=== PATIENT | female | born 1990 | race Caucasian/White ===

== ENCOUNTER 2017-12-10 09:12 | Day surgery (SDC) | payer OTHER ==
[~2017-12-10 09:12] MED LIST: Buffered Lidocaine 0.9% SYRIN* 5 ML/SYR SYRINGE INTRADERM ONE; Dexamethasone TAB* 4 MG PO ONE; DiMENhydriNATE IV* 50 MG/ML VIAL IV PUSH PRN; Famotidine IV* 10 MG/ML 2 ML (20 mg) IV ONE; Morphine VIAL* 4 MG/ML VIAL (1 ml vial) IV PRN; Naloxone* 0.4 MG/ML 1 ML VIAL IV PRN; Ondansetron TAB* 4 MG PO ONE; PROCHLORPERAZINE INJ 5 MG/ML 2 ML VIAL IV PRN; Scopolamine 1.5 mg* PATCH TRANSDERM PRN; oxyCODONE/Acetamin 5/325 MG* TAB PO PRN
[2017-12-10] MEDS ORDERED: KETAMINE HCL* 50 MG/ML 10 ML VIAL ONE (09:20)
[2017-12-10] MEDS ORDERED: fentaNYL* 50 MCG/ML 2 ML VIAL (100 MCG VIAL) ONE ×2 (09:20→14:15)
[2017-12-10] MEDS ORDERED: Midazolam* 1 MG/ML 5 ML VIAL (5 MG) ONE (09:20)
[2017-12-10] MEDS ORDERED: Famotidine IV* 10 MG/ML 2 ML (20 mg) ONE (09:22)
[2017-12-10] MEDS ORDERED: Dexamethasone TAB* 4 MG ONE (09:22)
[2017-12-10] MEDS ORDERED: Ondansetron ODT TAB* 4 MG ONE (09:22)
[2017-12-10] MEDS ORDERED: ceFAZolin 2 GM PREMIX in ORs 2 GM/50 ML BAG IVPB ONE (09:23)
[2017-12-10] MEDS ORDERED: Buffered Lidocaine 0.9% SYRIN* 5 ML/SYR SYRINGE ONE (09:23)
[2017-12-10] MEDS ORDERED: Bupivacaine 0.5% SDV PF* 30ML VIAL ONE (11:36)
[2017-12-10] MEDS ORDERED: PROCHLORPERAZINE INJ 5 MG/ML 2 ML VIAL ONE ×2 (12:09→14:34)
[2017-12-10] MEDS ORDERED: Lidocaine 2% PF * 5 ML VIAL ONE (12:09)
[2017-12-10] MEDS ORDERED: Ketorolac INJ* 30 MG/ML 1 ML VIAL ONE (12:09)
[2017-12-10] MEDS ORDERED: Propofol* 10 MG/ML 20 ML BTL IV PUSH ONE (12:09)
[2017-12-10] MEDS ORDERED: Morphine VIAL* 10 MG/ML 1 ML VIAL ONE (12:10)
[2017-12-10] MEDS ORDERED: Labetalol IV* 5 MG/ML 20 ML VIAL ONE (13:18)
[2017-12-10] MEDS: fentaNYL* 50 MCG/ML 2 ML VIAL (100 MCG VIAL) IV PRN ×3 (14:16→14:36)
--- NOTE | 2017-12-10 14:24 | OP ---
Operative Report - Blank - Operative Report Date of Operation: 12/10/17 Note: PATIENT: Ede Melvin DATE OF : 1990 DATE OF SURGERY: 12/10/2017 SURGEON: Alban Alvarado MD WELLNESS EDUCATOR: MARIBETH Dorsey, whos assistance was necessary for positioning, retraction, help with instrumentation, and closure. ANESTHESIOLOGIST: Dr. Bronson PREOPERATIVE DIAGNOSIS: Right peroneal tenosynovitis, peroneus brevis and longus tears and peroneal instability. Right calcaneal exostosis. Chronic right ankle instability. POSTOPERATIVE DIAGNOSIS: Right peroneal tenosynovitis, peroneus brevis and longus tears and peroneal instability. Right calcaneal exostosis. Chronic right ankle instability. OPERATION: 1. Repair of right peroneus brevis and longus tendon tears. 2. Right synovectomy of peroneal tendon sheath 3. Right peroneal tendon stabilization procedure with fibular groove deepening osteotomy. 4. Right calcaneal saucerization with excision of an enlarged peroneal tubercle. 5. Right ankle lateral ligament reconstruction with allograft. ANESTHESIA: GETA IMPLANTS: Arthrex plate and screws, Arthrex biotenodesis screws TOURNIQUET TIME: Less than 2 hours with a well-padded calf tourniquet at 250 mmHg. SPECIMENS: none ESTIMATED BLOOD LOSS: minimal COMPLICATIONS: none STATUS: Stable from the operating room to the recovery room and then home. INDICATIONS FOR PROCEDURE: Ede has had multiple prior right ankle surgeries with the above problems. Both operative and non operative treatment alternatives were reviewed. Further, the nature and risks of surgery were reviewed in careful detail, in the office as well as the pre-operative holding area. Our discussions regarding the risks of surgery included, but were not limited to, infection, wound problems, nerve injury, neuroma, RSD, persistent symptoms, fracture, blood clot, failure of the surgery, recurrent instability and even the remote chance of catastrophic complication, including loss of limb. DESCRIPTION OF PROCEDURE: The patient was seen in the preoperative holding unit and informed written consent was obtained. The appropriate extremity was marked. The patient was then brought to the operating room and carefully positioned on the operating room table. Anesthesia was induced. All bony prominences were padded with great care. A chlorhexidine based pre-scrub was performed followed by a chloraprep prep and drape in standard sterile fashion. A surgical safety pause was then conducted in which we confirmed the appropriate patient, extremity, planned procedure, availability of equipment, indication and administration of prophylactic antibiotics, and DVT prophylaxis in the form of a compression boot on the non-surgical extremity. I began with placement of a sterile calf tourniquet 3 finger-breadths distal to the fibular neck. An Esmarch exsanguination of the limb was then performed and the tourniquet inflated. I utilized the prior longitudinal incision overlying the distal fibula laterally. I carried the dissection down through the soft tissue to the level of the periosteum and superior peroneal retinaculum (SPR), which had a great deal of scar tissue. I carefully incised the SPR off of the posterior fibula to expose the peroneal tendons. Dissection of the tendons was carried distally. There was a large amount of inflamed tenosynovium within the tendon sheath. An extensive synovectomy was performed. Additionally, there was a low-lying peroneus brevis muscle belly which was debrided and excised. The tendons were explored at this time for any tears. There were longitudinal split tears of the peroneus brevis and longus at the level of the retro-fibular groove. I removed a small slip of loose frayed tendon from each tendon, leaving approximately 95% of the tendons intact. I then utilized a 3-0 Ethibond suture to repair the tendon tears. I then exposed the peroneal tendons distally and found an enlarged peroneal tubercle. I took down the gliding layer and then utilized a rongeur to remove this large tubercle, thus performing a saucerization of the calcaneus. At this point, I carefully inspected the peroneal groove at the posterior aspect of the fibula. This was an abnormally shallow groove and I therefore elected to perform a groove deepening osteotomy procedure. I utilized a small sagittal saw to create a longitudinal osteotomy in the fibula at the margin of the insertion of the SPR. I then utilized a bone tamp and a mallet to impact this area, deepening the groove. I took care to ensure that there were no sharp bony prominences in this area. At this point I carefully planned out the repair of the superior peroneal retinaculum. I then reduced the tendons and they sat nicely in the deepened retro-fibular groove. The wound was copiously irrigated. I repaired the SPR utilizing #1 Vicryl suture in a transosseous horizontal mattress suture pattern. I utilized multiple sutures for this repair, appropriately tensioning the SPR. I was able to pass a [place] under the repaired SPR without difficulty after the repair. I then dissected anteriorly to expose the anterolateral ankle ligaments. The ATFL and CFL were dissected off the distal fibula. The insertion of the ATFL onto the talus was visualized. A Beath pin guide pin was then driven into the body of the talus. The trajectory and position was confirmed on fluoroscopy. This was overdrilled and one end of the allograft tendon was placed into the drill hole. This was fixed in position with a Bio-Tenodesis screw. This had excellent purchase and I was able to lift the leg off the bed by pulling up on the allograft. I then used a toya to make a trough for the allograft on the lateral aspect of the fibula. I laid the allograft in the trough, and then placed a mini fragment plate laterally over the fibula. I placed screws in the plate to bring the plate down to bone, while holding tension on the allograft. This recreated the ATFL nicely. I then visualized the insertion of the CFL into the calcaneus. At this spot, a Beath pin was then driven into the calcaneus in an inferior and posterior direction. This was driven out of the medial calcaneus and then overdrilled to make a drill tunnel. The sutures on the end of the allograft were attached to the Beath pin and pulled through the calcaneus. With the foot in a neutral position, a Bio-Tenodesis screw was placed into the calcaneal drill tunnel. This again had excellent purchase. There was church of stability on anterior drawer and inversion testing. I then took the crow ATFL tissue and sutured it to a periosteal flap on the distal fibula to reinforce the allograft reconstruction. I then also sutured the inferior extensor retinaculum into the distal fibular periosteum (Phillips modification). After these repairs, the ankle and foot rested in an excellent position. We then irrigated the wound copiously again. The wound was closed in a layered fashion utilizing 3-0 Monocryl and 3-0 nylon. A sterile dressing was then applied and the ankle was splinted in a neutral position. All needle and sponge counts were correct at the end of the case. The patient was awakened from anesthesia and transferred to the recovery room in stable condition. There were no complications. ATTESTATION: I attest I was present and scrubbed and performed the critical portions of the procedure myself. POST-OPERATIVE PLAN: The patient will remain [id number] for an anticipated duration of 6 weeks. Follow up will be in 2 weeks for likely suture removal and transition into a short leg cast.
[2017-12-10] MEDS ORDERED: Morphine VIAL* 4 MG/ML VIAL (1 ml vial) IV ONE (14:38)
[2017-12-10 15:54] VITALS: BP 119/72
[2017-12-10] MEDS ORDERED: oxyCODONE/Acetamin 5/325 MG* TAB ONE (16:09)
--- NOTE | 2017-12-11 07:13 | RAD ---
INDICATION: Right ankle peroneal tendon exploration with repair. COMPARISON: Comparison is made with a prior x-ray study of the right ankle from September 14, 2017. TECHNIQUE: 20 seconds of intermittent fluoroscopic guidance were provided and 4 spot films of the right ankle were obtained in the operating room. FINDINGS: The films and is replacement of a metallic side plate present along the lateral aspect of the distal fibula transfixed with 5 surgical screws. IMPRESSION: INTRAOPERATIVE CONTROL FILMS. CPT II Codes: G9500
[2017-12-13] MEDS ORDERED: Scopolamine PATCH Remove* 1 NOTE MISC PATCH OFF ONE (05:45)
== END 2017-12-10 16:43 | disposition home or self-care (01) ==
LOC: OR 09:12
PROVIDERS: ATTEND Orthopaedic Surgery
DX: M25.371 Other instability, right ankle (principal); M76.71 Peroneal tendinitis, right leg; Q66.7 Congenital pes cavus; M77.31 Calcaneal spur, right foot
CPT/HCPCS: 76001; A9270-GY; C1713; C1776; J0690; J0780; J1885; J2250; J2270; J2704; J3010; J8540; L8699

== ENCOUNTER 2018-01-24 20:00 | Emergency (ER) | payer OTHER ==
--- OUTSIDE RECORDS SUMMARY | 2018-01-24 20:17 | XMS REPORT ---
:1990 External Reference #:[id number] Author Organization [facility] Address [address] [place] [address] [place] [address] Phone [phone] Care Team Providers Name Role Phone Cheryl Samson DO Primary Care Physician Unavailable Payers Type Date Identification Numbers Payment Provider Subscriber Commercial Policy Number: [id number] Felipe Melvin PayID: [id number] [address] [place] [id number] Problems Date Description Provider Status Onset: 12/10/2017 Other specified disorders of tendon, right Alban Alvarado MD Active ankle and foot Onset: 12/10/2017 Enthesopathy of ankle AND/OR tarsus Alban Alvarado MD Active Onset: 12/10/2017 Other synovitis and tenosynovitis, unsp Alban Alvarado MD Active ankle and foot Onset: 09/14/2017 Peroneal tendinitis, right leg Alban Alvarado MD Active Onset: 09/14/2017 Congenital pes cavus Alban Alvarado MD Active Onset: 09/14/2017 Joint derangement Alban Alvarado MD Active Family History Date Family Member(s) Problem(s) Comments General Cancer General Diabetes General Hypertension Social History Type Date Description Comments Lives With Spouse Occupation Disabled ETOH Use Occasionally consumes alcohol Smoking Patient has never smoked Allergies, Adverse Reactions, Alerts Date Description Reaction Status Severity Comments 09/08/2017 Bactrim active 09/08/2017 Iodine active 09/08/2017 Percocet active 09/08/2017 Flagyl active Medications Medication Date Status Form Strength Qnty SIG Indications Ordering Provider Hira Active Tablets 5-325mg 30tabs 1 by [facility] 018 mouth Jenny, every 4-6 MD hours as needed Cymbalta Active Unknown 000 Botox Active Unknown 000 Ativan Active Unknown 000 Trazodone HCL Active Unknown 000 Keflex Hx Capsules 500mg 12caps 1 tab by [facility] 018 - mouth Jenny, four MD 018 times a day Vital Signs Date Vital Result Comment 12/28/2017 Height 66 inches 5'6" Weight 232.00 lb Heart Rate 88 /min Respiratory Rate 17 /min BMI (Body Mass Index) 37.4 kg/m2 12/22/2017 Height 66 inches 5'6" Weight 232.00 lb Heart Rate 104 /min BP Systolic 144 mmHg BP Diastolic 94 mmHg Respiratory Rate 16 /min Body Temperature 98.0 F Pain Level 7 BMI (Body Mass Index) 37.4 kg/m2 11/24/2017 Height 66 inches 5'6" Weight 235.00 lb Heart Rate 96 /min Respiratory Rate 16 /min Pain Level 6 BMI (Body Mass Index) 37.9 kg/m2 11/16/2017 Height 66 inches 5'6" Weight 232.00 lb Heart Rate 112 /min Respiratory Rate 16 /min Body Temperature 97.2 F BMI (Body Mass Index) 37.4 kg/m2 09/14/2017 Height 66 inches 5'6" Weight 232.00 lb Heart Rate 96 /min Respiratory Rate 20 /min Body Temperature 98.0 F Pain Level 7 BMI (Body Mass Index) 37.4 kg/m2 09/08/2017 Height 66 inches 5'6" Weight 232.00 lb Heart Rate 104 /min Respiratory Rate 20 /min Body Temperature 97.3 F Pain Level 5 BMI (Body Mass Index) 37.4 kg/m2 Results Test Date Test Result H/L Range Note Laboratory test finding 12/09/2017 Semiten SEE RESULTS BELO <SEE NOTE> 1, 2 1 OTHER INSTABILITY, RIGHT ANKLE, CONGENITAL PES CAV 2 SEE RESULTS BELOW [id number] SEMITEN TRANSFUSED 12/10/17 1005 Procedures Date CPT Code Description Status 12/28/2017 22716 Short Leg Cast Completed 12/10/2017 03462 Partial Excision Bone Talus/Calcaneus Completed 12/10/2017 30077 Partial Excision Bone Talus/Calcaneus Completed 12/10/2017 03507 Synovectomy Flexor Tendon Foot Completed 12/10/2017 59864 Repair Collateral Ligament Ankle, Secondary Completed 12/10/2017 29736 Repair Collateral Ligament Ankle, Secondary Completed 12/10/2017 80070 Repair Dislocating Peroneal Tendon W/Fibular Osteotomy Completed 12/10/2017 11671 Repair Dislocating Peroneal Tendon W/Fibular Osteotomy Completed 12/10/2017 27469 Repair Flexor Tendon Leg Primary W/O Graft Completed 12/10/2017 96825 Repair Flexor Tendon Leg Primary W/O Graft Completed 12/10/2017 52430 Repair Flexor Tendon Leg Primary W/O Graft Completed Encounters Type Date Location Provider CPT E/M Dx Office Visit 11/24/2017 [facility] [place] [address] M25.371 2:30p [facility] M76.71 Q66.7 Office Visit 11/16/2017 3:00p [facility] [place] [address] M76.71 [facility] M25.371 Q66.7 Office Visit 09/14/2017 3:30p [facility] [place] [address] M76.71 [facility] M25.371 Q66.7 Office Visit 09/08/2017 11:00a [facility] [place] [address] M76.71 [facility] M25.571 Plan of Care Future Appointment(s):01/19/2018 11:15 am - Alban Al[facility]ado MD at [facility]12/28/2017 - Alban Alvarado, MDM25.371 Other instability, right ankleFollow up:Follow Up: as ykgutijrrE41.771 Osteophyte, right dgsbwA77.7 Congenital pes cicdeK40.71 Peroneal tendinitis, right leg
--- OUTSIDE RECORDS SUMMARY | 2018-01-24 20:17 | XMS REPORT | Continuity of Care Document ---
:1990 External Reference #:[id number] Author Name [facility] Care Team Providers Name Role Phone Cheryl Samson DO Primary Care Physician Unavailable Payers Type Date Identification Numbers Payment Provider Subscriber Policy Number: [id number] Felipe Melvin PayID: [id number] [address] [place] [address] Advance Directives Description No Information Available Problems Date Description Provider Status Onset: 12/10/2017 Other specified disorders of tendon, right Alban Alvarado MD Active ankle and foot Onset: 12/10/2017 Enthesopathy of ankle AND/OR tarsus Alban Alvarado MD Active Onset: 12/10/2017 Other synovitis and tenosynovitis, Alban Alvarado MD Active unspecified ankle and foot Onset: 09/14/2017 Peroneal tendinitis, right leg Alban Alvarado MD Active Onset: 09/14/2017 Congenital pes cavus Alban Alvarado MD Active Onset: 09/14/2017 Joint derangement Alban Alvarado MD Active Family History Date Family Member(s) Problem(s) Comments General Cancer General Diabetes General Hypertension Social History Type Date Description Comments Sex Unknown Lives With Spouse Occupation Disabled ETOH Use Occasionally consumes alcohol Tobacco Use Start: Unknown Patient has never smoked Smoking Status Reviewed: 01/19/18 Patient has never smoked Allergies, Adverse Reactions, Alerts Date Description Reaction Status Severity Comments 09/08/2017 Bactrim Active 09/08/2017 Iodine Active 09/08/2017 Percocet Active 09/08/2017 Flagyl Active Medications Medication Date Status Form Strength Qnty SIG Indications Ordering Provider Hira Active Tablets 5-325mg 30tabs 1 by Alban 018 mouth Jenny, every 4-6 MD hours as needed Cymbalta Active Unknown 000 Botox Active Unknown 000 Ativan Active Unknown 000 Trazodone HCL Active Unknown 000 Keflex Hx Capsules 500mg 12caps 1 tab [address] [facility] 018 - mouth Jenny, four MD 018 times a day Immunizations Description No Information Available Vital Signs Date Vital Result Comment 01/19/2018 11:53am Height 66 inches 5'6" Weight 238.00 lb Heart Rate 82 /min Respiratory Rate 16 /min BMI (Body Mass Index) 38.4 kg/m2 12/28/2017 2:05pm Height 66 inches 5'6" Weight 232.00 lb Heart Rate 88 /min Respiratory Rate 17 /min BMI (Body Mass Index) 37.4 kg/m2 12/22/2017 2:12pm Height 66 inches 5'6" Weight 232.00 lb Heart Rate 104 /min BP Systolic 144 mmHg BP Diastolic 94 mmHg Respiratory Rate 16 /min Body Temperature 98.0 F Pain Level 7 BMI (Body Mass Index) 37.4 kg/m2 11/24/2017 2:40pm Height 66 inches 5'6" Weight 235.00 lb Heart Rate 96 /min Respiratory Rate 16 /min Pain Level 6 BMI (Body Mass Index) 37.9 kg/m2 11/16/2017 2:54pm Height 66 inches 5'6" Weight 232.00 lb Heart Rate 112 /min Respiratory Rate 16 /min Body Temperature 97.2 F BMI (Body Mass Index) 37.4 kg/m2 09/14/2017 3:26pm Height 66 inches 5'6" Weight 232.00 lb Heart Rate 96 /min Respiratory Rate 20 /min Body Temperature 98.0 F Pain Level 7 BMI (Body Mass Index) 37.4 kg/m2 09/08/2017 10:44am Height 66 inches 5'6" Weight 232.00 lb Heart Rate 104 /min Respiratory Rate 20 /min Body Temperature 97.3 F Pain Level 5 BMI (Body Mass Index) 37.4 kg/m2 Results Test Date Facility Test Result H/L Range Note Laboratory test 12/09/2017 [facility] Semiten SEE RESULTS 1 , [address] [facility] <SEE NOTE> [place] [address] [phone] 1 OTHER INSTABILITY, RIGHT ANKLE, CONGENITAL PES CAV 2 SEE RESULTS BELOW [id number] SEMITEN TRANSFUSED 12/10/17 1005 Procedures Date Code Description Status 12/28/2017 70173 Short Leg Cast Completed 12/10/2017 12377 Partial Excision Bone Talus/Calcaneus Completed 12/10/2017 62645 Partial Excision Bone Talus/Calcaneus Completed 12/10/2017 57589 Synovectomy Flexor Tendon Foot Completed 12/10/2017 92755 Repair Collateral Ligament Ankle, Secondary Completed 12/10/2017 15689 Repair Collateral Ligament Ankle, Secondary Completed 12/10/2017 87802 Repair Dislocating Peroneal Tendon W/Fibular Osteotomy Completed 12/10/2017 99638 Repair Dislocating Peroneal Tendon W/Fibular Osteotomy Completed 12/10/2017 57171 Repair Flexor Tendon Leg Primary W/O Graft Completed 12/10/2017 30041 Repair Flexor Tendon Leg Primary W/O Graft Completed 12/10/2017 89253 Repair Flexor Tendon Leg Primary W/O Graft Completed Encounters Type Date Location Provider Dx Diagnosis Office Visit 11/24/2017 [facility] Alban Alvarado, M25.371 Other 2:30p [facility] instability, right ankle M76.71 Peroneal tendinitis, right leg Q66.7 Congenital pes cavus Office Visit 11/16/2017 3:00p [facility] Alban Alvarado M76.71 [facility] chavez, right [facility] leg M25.371 Other instability, right ankle Q66.7 Congenital pes cavus Office Visit 09/14/2017 3:30p [facility] Bridgett Munoz76.71 [facility] chavez, right [facility] leg M25.371 Other instability, right ankle Q66.7 Congenital pes cavus Office Visit 09/08/2017 11:00a [facility] Alban Alvarado M76.71 [facility] chavez, right [facility] leg M25.571 Pain in right ankle and joints of right foot Plan of Treatment Future Appointment(s):03/02/2018 2:15 pm - Alban Alvarado MD at [facility]01/19/2018 - Alban Alvarado MDM25.371 Other instability, right ankleNew Xrays:Ankle Right 3+VWS, Ordered: 01/19/18New Therapy:Physical TherapyFollow up:Follow Up: 6 kljjxV79.771 Osteophyte, right pdlbhG32.7 Congenital pes vmkkhZ92.71 Peroneal tendinitis, right legM65.879 Other synovitis and tenosynovitis, unspecified ankle and fooNew Xrays:Ankle Right 3+ VWS, Ordered: 01/19/18
--- NOTE | 2018-01-24 22:57 | ED ---
Lower Extremity - HPI Summary HPI Summary: This patient is a 27 year old F presenting to [facility] accompanied by her with a chief complaint of right ankle swelling s/p cast removal that occurred 5 days ago. The patient rates the pain 7/10 in severity. Patient reports fever she has been taking antipyretics. Pt had an Achilles tendon replacement and artery repair 6 weeks ago and has had a cast on since. Surgeon was Dr alvarado. Pt takes dilaudid at home for pain. Hx of DVT. - History of Current Complaint Chief Complaint: EDExtremityLower Stated Complaint: POSS ANKLE INFECTION Time Seen by Provider: 01/24/18 22:45 Hx Obtained From: Patient Mechanism Of Injury: Other Onset/Duration: Days Severity Initially: Moderate Severity Currently: Moderate Pain Intensity: 7 Pain Scale Used: 0-10 Numeric Timing: Constant Location: Is Discrete @ - RLE - Allergies/Home Medications Allergies/Adverse Reactions: Allergies Allergy/AdvReac Type Severity Reaction Status Date / Time Iodinated Contrast- Oral and Allergy Severe Anaphylatic Verified 12/03/17 10:14 IV Dye Shock metronidazole [From Flagyl] Allergy Severe Rash, Verified 12/03/17 10:14 nausea, vomiting sulfamethoxazole Allergy Severe Rash Verified 12/03/17 10:14 [From Bactrim] trimethoprim [From Bactrim] Allergy Severe Rash Verified 12/03/17 10:14 BEES Allergy Anaphylatic Uncoded 12/10/17 09:31 Shock PMH/Surg Hx/FS Hx/Imm Hx Endocrine/Hematology History: Reports: Hx Anemia - on iron Denies: Hx Diabetes Cardiovascular History: Denies: Hx Hypertension, Hx Pacemaker/ICD History: Denies: Hx Renal Disease Musculoskeletal History: Reports: Hx Arthritis - rheumatiod and osteoarthritis, Hx Tendonitis - ankle and knees Sensory History: Reports: Hx Contacts or Glasses - both- glasses day of surgery Denies: Hx Hearing Aid Opthamlomology History: Reports: Hx Contacts or Glasses - both- glasses day of surgery Neurological History: Reports: Hx Migraine - everyday, Other Neuro Impairments/ Disorders - CONVERSION DISORDER- R/T PAIN- Psychiatric History: Reports: Hx Anxiety, Hx Depression Denies: Hx Panic Disorder - Cancer History Hx Chemotherapy: No - Surgical History Surgery Procedure, Year, and Place: RIGHT ANKLEx7. LEFT HAND. RIGHT SHOULDER. 2X C SECTIONS. TUBAL SURGERY. RIGHT OVARY REMOVED. GASTRIC SLEEVE. GALLBLADDER. APPENDIX Hx Anesthesia Reactions: Yes - hard time keeping under,wakes up nausea Infectious Disease History: No Infectious Disease History: Denies: Traveled Outside the [place] in Last 30 Days - Social History Lives: With Family Alcohol Use: Rare Substance Use Type: Reports: Marijuana Substance Use Comment - Amount & Last Used: medical uses oil Smoking Status (MU): Never Smoked Tobacco Review of Systems Positive: Fever Positive: Edema All Other Systems Reviewed And Are Negative: Yes Physical Exam - Summary Physical Exam Summary: VITAL SIGNS: Reviewed. GENERAL: Patient is a well-developed and nourished female who is lying comfortable in the stretcher. Patient is not in any acute respiratory distress. HEAD AND FACE: No signs of trauma. No ecchymosis, hematomas or skull depressions. No sinus tenderness. EYES: PERRLA, EOMI x 2, No injected conjunctiva, no nystagmus. EARS: Hearing grossly intact. Ear canals and tympanic membranes are within normal limits. MOUTH: Oropharynx within normal limits. NECK: Supple, trachea is midline, no adenopathy, no JVD, no carotid bruit, no c- spine tenderness, neck with full ROM. CHEST: Symmetric, no tenderness at palpation LUNGS: Clear to auscultation bilaterally. No wheezing or crackles. CVS: Regular rate and rhythm, S1 and S2 present, no murmurs or gallops appreciated. ABDOMEN: Soft, non-tender. No signs of distention. No rebound no guarding, and no masses palpated. Bowel sounds are normal. EXTREMITIES: RLE ankle is swollen at the medial malleolus it is TTP without warmth or erythema. Mild swelling in the right calf. NEURO: Alert and oriented x 3. No acute neurological deficits. Speech is normal and follows commands. SKIN: Dry and warm Triage Information Reviewed: Yes Vital Signs On Initial Exam: Initial Vitals Temp Pulse Resp BP Pulse Ox 98.2 F 100 20 125/84 99 01/24/18 20:06 01/24/18 20:06 01/24/18 20:06 01/24/18 20:06 01/24/18 20:06 Vital Signs Reviewed: Yes Diagnostics - Vital Signs Vital Signs Temp Pulse Resp BP Pulse Ox 01/24/18 20:06 98.2 F 100 20 125/84 99 - Laboratory Result Diagrams: 01/24/18 23:22 01/24/18 23:22 Lab Statement: Any lab studies that have been ordered have been reviewed, and results considered in the medical decision making process. - Additional Comments Diagnostic Additional Comments: LE US doppler reveals, per radiologist, No acute findings. No evidence of deep vein thrombosis. ED physician has reviewed this radiology report. Lower Extremity Course/Dx - Course Assessment/Plan: This patient is a 27 year old F presenting to [facility] accompanied by her with a chief complaint of right ankle swelling s/p cast removal that occurred 5 days ago. The patient rates the pain 7/10 in severity. Patient reports fever she has been taking antipyretics. Pt had an Achilles tendon replacement and artery repair 6 weeks ago and has had a cast on since. Surgeon was Dr alvarado. Pt takes dilaudid at home for pain. Hx of DVT. LE US doppler reveals, per radiologist, No acute findings. No evidence of deep vein thrombosis. Bloodwork obtained. In the ED course the patient was given Percocet. Patient will be discharged with follow up from ortho. The patient is agreeable with this plan. - Diagnoses Provider Diagnoses: Chronic ankle pain Discharge - Sign-Out/Discharge Documenting (check all that apply): Patient Departure - Discharge Plan Condition: Stable Disposition: HOME Patient Education Materials: Arthralgia (ED) Referrals: Alban Alvarado MD [Medical Doctor] - As Soon As Possible Additional Instructions: RETURN TO THE EMERGENCY DEPARTMENT FOR CHANGING OR WORSENING SYMPTOMS - Attestation Statements Document Initiated by Scribe: Yes Documenting Scribe: Leon Elliott Provider For Whom Scribe is Documenting (Include Credential): Natalio Ontiveros MD Scribe Attestation: Leon Yañez , scribed for Natalio Ontiveros MD on 01/25/18 at 0049. Status of Scribe Document: Ready
[2018-01-24] MEDS ORDERED: oxyCODONE/Acetamin 5/325 MG* TAB PO ONE (23:12)
[2018-01-24 23:37] LABS: INR 0.96 (0.77-1.02)
[2018-01-24 23:39] LABS: ABS Basophils 0 10^3/ul (0-0.2); ABS Eosinophils 0.1 10^3/ul (0-0.6); ABS Lymphocytes 2.4 10^3/ul (1.0-4.8); ABS Monocytes 0.4 10^3/ul (0-0.8); ABS Neutrophils 2.8 10^3/ul (1.5-7.7); ABS Nucleated RBC 0 10^3/ul; Eosinophil % 2.4 %; Hematocrit 32 % (35-47); Hemoglobin 10.2 g/dl (12.0-16.0); Lymphocyte % 40.9 %; Mean Corpuscular HGB Conc 32 g/dl (31-36); Mean Corpuscular Hemoglobin 25 pg (27-31); Mean Corpuscular Volume 80 fL (80-97); Mean Platelet Volume 8.2 fL (7.4-10.4); Nucleated Red Blood Cells % 0.1; Platelet Count 313 10^3/ul (150-450); Red Blood Count 4.06 10^6/ul (4.00-5.40); Red Cell Distribution Width 16 % (10.5-15); White Blood Count 5.8 10^3/ul (3.5-10.8)
[2018-01-24 23:47] LABS: EGFR Non-African American 111.3 (>60)
[2018-01-25 01:30] VITALS: BP 129/77
== END 2018-01-25 01:29 | disposition home or self-care (01) ==
LOC: ED 20:00
DX: M25.571 Pain in right ankle and joints of right foot (principal); G89.29 Other chronic pain; R50.9 Fever, unspecified; R60.9 Edema, unspecified
CPT/HCPCS: 36415; 80053; 85025; 85610; 85730; 86140; 99282; A9270-GY

== ENCOUNTER → 2018-06-04 17:39 | Emergency (ER) | payer OTHER ==
[~2018-06-04 17:39] MED LIST changes: -Buffered Lidocaine 0.9% SYRIN* 5 ML/SYR SYRINGE INTRADERM ONE; -Dexamethasone TAB* 4 MG PO ONE; -DiMENhydriNATE IV* 50 MG/ML VIAL IV PUSH PRN; -Famotidine IV* 10 MG/ML 2 ML (20 mg) IV ONE; -Morphine VIAL* 4 MG/ML VIAL (1 ml vial) IV PRN; -Naloxone* 0.4 MG/ML 1 ML VIAL IV PRN; -Ondansetron TAB* 4 MG PO ONE; -PROCHLORPERAZINE INJ 5 MG/ML 2 ML VIAL IV PRN; -Scopolamine 1.5 mg* PATCH TRANSDERM PRN; +oxyCODONE TAB* 5 MG TAB PO ONE; -oxyCODONE/Acetamin 5/325 MG* TAB PO PRN
--- OUTSIDE RECORDS SUMMARY | 2018-06-04 18:02 | XMS REPORT | Continuity of Care Document ---
:1990 External Reference #:[id number] Author Name Elisa Greene Care Team Providers Name Role Phone Cheryl Samson DO Primary Care Physician Unavailable Payers Date Identification Numbers Payment Provider Subscriber Policy Number: [id number] Felipe Melvin PayID: [id number] [address] [place] [address] Advance Directives Description No Information Available Problems [...] MD Active Family History Date Family Member(s) Observation Comments General Cancer General Diabetes General Hypertension Social History Type Date Description Comments Sex Unknown Lives With Spouse Occupation Disabled ETOH Use Occasionally consumes alcohol Tobacco Use Start: Unknown Patient has never smoked Smoking Status Reviewed: 05/25/18 Patient has never smoked Allergies, Adverse Reactions, Alerts Date Description Reaction Status Severity Comments 09/08/2017 Bactrim Active 09/08/2017 Iodine Active 09/08/2017 Percocet Active 09/08/2017 Flagyl Active Medications Medication Date Status Form Strength Qnty SIG Indications Ordering Provider Cymbalta 0 Active Unknown 000 Botox 0 Active Unknown 000 Ativan Active Unknown 000 Trazodone HCL Active Unknown 000 [place] Hx Tablets 5-325mg 30tabs 1 by Alban 018 - mouth Jenny, every 4-6 MD 019 hours as needed Keflex Hx Capsules 500mg 12caps 1 tab by Alban 018 - mouth Jenny, four MD 018 times a day Immunizations Description No Information Available Vital Signs Date Vital Result Comment 05/25/2018 1:34pm Height 66 inches 5'6" Weight 238.00 lb Heart Rate 74 /min BP Systolic Sitting 122 mmHg BP Diastolic Sitting 82 mmHg Body Temperature 97.2 F Pain Level 4 BMI (Body Mass Index) 38.4 kg/m2 03/02/2018 2:19pm Height 66 inches 5'6" Weight 238.00 lb Heart Rate 108 /min Respiratory Rate 18 /min Body Temperature 98.2 F Pain Level 6 BMI (Body Mass Index) 38.4 kg/m2 01/19/2018 11:53am Height 66 inches 5'6" Weight [...] Result H/L Range Note Laboratory test 12/09/2017 [facility] Semiten SEE RESULTS 1 , [address] [facility] [place] [address] [phone] 1 OTHER INSTABILITY, RIGHT ANKLE, CONGENITAL PES CAV 2 SEE RESULTS BELOW [id number] SEMITEN TRANSFUSED 12/10/17 1005 Procedures Date Code Description Status 12/28/2017 50134 Short Leg Cast Completed 12/10/2017 47768 Partial Excision Bone Talus/Calcaneus Completed 12/10/2017 19642 Partial Excision Bone Talus/Calcaneus Completed 12/10/2017 37009 Synovectomy Flexor Tendon Foot Completed 12/10/2017 44237 Repair Collateral Ligament Ankle, Secondary Completed 12/10/2017 20077 Repair Collateral Ligament Ankle, Secondary Completed 12/10/2017 94210 Repair Dislocating Peroneal Tendon W/Fibular Osteotomy Completed 12/10/2017 18067 Repair Dislocating Peroneal Tendon W/Fibular Osteotomy Completed 12/10/2017 04669 Repair Flexor Tendon Leg Primary W/O Graft Completed 12/10/2017 82422 Repair Flexor Tendon Leg Primary W/O Graft Completed 12/10/2017 42325 Repair Flexor Tendon Leg Primary W/O Graft Completed Encounters Type Date Location Provider Dx Diagnosis Office Visit 11/24/2017 Jacinto Alvarado, M25.371 Other 2:30p [facility] instability, right ankle M76.71 Peroneal tendinitis, right leg Q66.7 Congenital pes cavus Office Visit 11/16/2017 3:00p Bridgett Carrion76.71 [facility], right Justin.M.A. leg M25.371 Other instability, right ankle Q66.7 Congenital pes cavus Office Visit 09/14/2017 3:30p Bridgett Carrion76.71 [facility], right Justin.M.A. leg M25.371 Other instability, right ankle Q66.7 Congenital pes cavus Office Visit 09/08/2017 11:00a Orthopedic Alban Alvarado, M76.71 [facility], right C.M.A. leg M25.571 Pain in right ankle and joints of right foot Plan of Treatment 05/25/2018 - Alban Alvarado, MDM25.371 Other instability, right ankleNew Xrays: CT Extremity Lower Right Wo, Ordered: 05/25/18Follow up:Follow Up: after testing / imaging is [id number] Peroneal tendinitis, right leg
--- NOTE | 2018-06-04 20:20 | ED ---
Lower Extremity - HPI Summary HPI Summary: 27-year-old female presents with right ankle injury. States that she had a seizure and ended up injuring her right ankle. She has history of hardware in that ankle. She was having pain prior to that seizure. States she has extreme pain which walking on it. She notes marked increased swelling and bruising to the right ankle. She has decreased sensation at baseline. She has been taking ibuprofen for pain. Also admits to right femur pain. she is able to ambulate. - History of Current Complaint Chief Complaint: EDExtremityLower Stated Complaint: RT ANKLE INJURY PER PT Time Seen by Provider: 06/04/18 18:49 Pain Intensity: 8 - Allergies/Home Medications Allergies/Adverse Reactions: Allergies Allergy/AdvReac Type Severity Reaction Status Date / Time Iodinated Contrast- Oral and Allergy Severe Anaphylatic Verified 12/03/17 10:14 IV Dye Shock metronidazole [From Flagyl] Allergy Severe Rash, Verified 12/03/17 10:14 nausea, vomiting sulfamethoxazole Allergy Severe Rash Verified 12/03/17 10:14 [From Bactrim] trimethoprim [From Bactrim] Allergy Severe Rash Verified 12/03/17 10:14 Iodine and Iodide Containing Allergy Anaphylatic Verified 06/04/18 17:47 Produc Shock BEES Allergy Anaphylatic Uncoded 12/10/17 09:31 Shock PMH/Surg Hx/FS Hx/Imm Hx Endocrine/Hematology History: Reports: Hx Anemia - on iron Denies: Hx Diabetes Cardiovascular History: Denies: Hx Hypertension, Hx Pacemaker/ICD History: Denies: Hx Renal Disease Musculoskeletal History: Reports: Hx Arthritis - rheumatiod and osteoarthritis, Hx Tendonitis - ankle and knees Sensory History: Reports: Hx Contacts or Glasses - both- glasses day of surgery Denies: Hx Hearing Aid Opthamlomology History: Reports: Hx Contacts or Glasses - both- glasses day of surgery Neurological History: Reports: Hx Migraine - everyday, Other Neuro Impairments/ Disorders - CONVERSION DISORDER- R/T PAIN- Psychiatric History: Reports: Hx Anxiety, Hx Depression Denies: Hx Panic Disorder - Cancer History Hx Chemotherapy: No - Surgical History Surgery Procedure, Year, and Place: RIGHT ANKLEx7. LEFT HAND. RIGHT SHOULDER. 2X C SECTIONS. TUBAL SURGERY. RIGHT OVARY REMOVED. GASTRIC SLEEVE. GALLBLADDER. APPENDIX Hx Anesthesia Reactions: Yes - hard time keeping under,wakes up nausea Infectious Disease History: No Infectious Disease History: Denies: Traveled Outside the [place] in Last 30 Days - Family History Known Family History: Positive: Non-Contributory - Social History Alcohol Use: None Substance Use Type: Reports: Marijuana Substance Use Comment - Amount & Last Used: medical uses oil Smoking Status (MU): Never Smoked Tobacco Review of Systems Negative: Fever Negative: Chest Pain Negative: Shortness Of Breath Positive: Myalgia - right ankle pain All Other Systems Reviewed And Are Negative: Yes Physical Exam Triage Information Reviewed: Yes Vital Signs On Initial Exam: Initial Vitals Temp Pulse Resp BP Pulse Ox 98.1 F 83 14 131/75 98 06/04/18 17:47 06/04/18 17:47 06/04/18 17:47 06/04/18 17:47 06/04/18 17:47 Vital Signs Reviewed: Yes Appearance: Positive: Well-Appearing Skin: Positive: Warm, Dry, Other - ecchymosis to right ankle lateral Head/Face: Positive: Normal Head/Face Inspection Eyes: Positive: Normal, Conjunctiva Clear ENT: Positive: Pharynx normal Respiratory/Lung Sounds: Positive: Clear to Auscultation, Breath Sounds Present Cardiovascular: Positive: Normal, RRR Musculoskeletal: Positive: Limited @ - right ankle, Other - Tenderness over right lateral malleolus, decreased sensation at baseline, capillary refill less than 2 seconds, good pulses Neurological: Positive: Normal Psychiatric: Positive: Normal Diagnostics - Vital Signs Vital Signs Temp Pulse Resp BP Pulse Ox 06/04/18 17:47 98.1 F 83 14 131/75 98 - Laboratory Lab Statement: Any lab studies that have been ordered have been reviewed, and results considered in the medical decision making process. - Radiology femur Radiology Interpretation Completed By: ED Physician Summary of Radiographic Findings: no fracture ankle Radiology Interpretation Completed By: ED Physician Summary of Radiographic Findings: no fracture - CT ankle CT Interpretation Completed By: Radiologist Summary of CT Findings: IMPRESSION: No acute fractures. Healed distal fibular fracture which is unremarkable. hardware. Lateral soft tissue swelling with possible small hematoma. Re-Evaluation - Re-Evaluation First Eval Re-Evaluation Time: 20:20 Change: Worse Lower Extremity Course/Dx - Course Course Of Treatment: 27-year-old female presents with right ankle injury. States that she had a seizure and ended up injuring her right ankle. She has history of hardware in that ankle. She was having pain prior to that seizure. States she has extreme pain which walking on it. She notes marked increased swelling and bruising to the right ankle. She has decreased sensation at baseline. She has been taking ibuprofen for pain. Also admits to right femur pain. she is able to ambulate. On exam has decreased sensation of right foot which is her baseline. Tenderness and edema and ecchymosis over right lateral malleolus. X-ray read by me as normal. With extreme amount of pain now will get CT. CT just shows soft tissue swelling. gave gel splint will follow orthopedic. Patient understands and agrees with plan. - Diagnoses Differential Diagnosis/HQI/PQRI: Positive: Fracture (Closed), Sprain, Strain Provider Diagnoses: Right ankle injury Discharge - Sign-Out/Discharge Documenting (check all that apply): Patient Departure Patient Received Moderate/Deep Sedation with Procedure: No - Discharge Plan Condition: Good Disposition: HOME Patient Education Materials: R.I.C.E. Treatment (ED) Referrals: Cheryl Samson DO [Primary Care Provider] - Alban Alvarado MD [Medical Doctor] - Additional Instructions: Stay off ankle as much as possible Ice, elevate Ibuprofen or tyenlol every 6 hours for pain Follow up with ortho Return to ED if develop or any new or worsening symptoms - Billing Disposition and Condition Condition: GOOD Disposition: Home
[2018-06-04 21:39] VITALS: BP 140/75
== END | disposition home or self-care (01) ==
LOC: ED 17:39
DX: S99.911A Unspecified injury of right ankle, initial encounter (principal); X58.XXXA Exposure to other specified factors, initial encounter; Z96.7 Presence of other bone and tendon implants; D64.9 Anemia, unspecified; M06.9 Rheumatoid arthritis, unspecified; M19.90 Unspecified osteoarthritis, unspecified site; F41.9 Anxiety disorder, unspecified; F32.9 Major depressive disorder, single episode, unspecified; Z91.041 Radiographic dye allergy status; Z88.2 Allergy status to sulfonamides; Z88.8 Allergy status to other drugs, medicaments and biological substances; Z79.899 Other long term (current) drug therapy
CPT/HCPCS: 99282; A9270-GY

== ENCOUNTER 2018-06-24 07:59 | Day surgery (SDC) | payer OTHER ==
[~2018-06-24 07:59] MED LIST changes: +Buffered Lidocaine 1% SYRIN* 1 ML/SYRINGE INTRADERM ONE; +Dexamethasone TAB* 4 MG PO ONE; +DiMENhydriNATE IV* 50 MG/ML VIAL IV PUSH PRN; +Famotidine IV* 10 MG/ML 2 ML (20 mg) IV ONE; +Lactated Ringers 1000 ML Bag* 1,000 ML IV SCH; +Morphine 4 MG/ML VIAL (1 ml) 4 MG/ML VIAL IV PRN; +Naloxone* 0.4 MG/ML 1 ML VIAL IV PRN; +Ondansetron TAB* 4 MG PO ONE; +PROCHLORPERAZINE INJ 5 MG/ML 2 ML VIAL IV PRN; +Scopolamine 1.5 mg* PATCH TRANSDERM ONE; +fentaNYL* 50 MCG/ML 2 ML VIAL (100 MCG VIAL) IV PRN; -oxyCODONE TAB* 5 MG TAB PO ONE; +oxyCODONE/Acetamin 5/325 MG* TAB PO PRN
[2018-06-24] MEDS ORDERED: Dexamethasone TAB* 4 MG ONE (08:00)
[2018-06-24] MEDS ORDERED: Famotidine IV* 10 MG/ML 2 ML (20 mg) ONE (08:01)
[2018-06-24] MEDS ORDERED: ceFAZolin 2 GM PREMIX in ORs 2 GM/50 ML BAG IVPB ONE (08:01)
[2018-06-24] MEDS ORDERED: Buffered Lidocaine 1% SYRIN* 1 ML/SYRINGE INTRADERM ONE (08:01)
[2018-06-24] MEDS ORDERED: Scopolamine 1.5 mg* PATCH ONE (08:01)
[2018-06-24] MEDS ORDERED: fentaNYL* 50 MCG/ML 2 ML VIAL (100 MCG VIAL) ONE ×2 (08:18→12:44)
[2018-06-24] MEDS ORDERED: KETAMINE HCL* 50 MG/ML 10 ML VIAL ONE (08:18)
[2018-06-24] MEDS ORDERED: Midazolam* 1 MG/ML 5 ML VIAL (5 MG) ONE (08:18)
[2018-06-24] MEDS ORDERED: Ondansetron ODT TAB* 4 MG ONE (08:43)
[2018-06-24] MEDS ORDERED: Morphine 10 MG/ML VIAL (1 ml) ONE (10:48)
[2018-06-24] MEDS ORDERED: Propofol* 10 MG/ML 20 ML BTL ONE (11:21)
[2018-06-24] MEDS ORDERED: Lidocaine 2% PF * 5 ML VIAL ONE (11:21)
[2018-06-24] MEDS ORDERED: Ketorolac INJ* 30 MG/ML 1 ML VIAL ONE (11:21)
[2018-06-24] MEDS ORDERED: PROCHLORPERAZINE INJ 5 MG/ML 2 ML VIAL ONE (11:21)
[2018-06-24] MEDS ORDERED: Midazolam* 1 MG/ML 2 ML VIAL (2 MG) ONE (11:23)
--- NOTE | 2018-06-24 12:03 | OP ---
Operative Report - Blank - Operative Report Date of Operation: 06/24/18 Note: PATIENT: Ede Melvin DATE OF : 1990 DATE OF SURGERY: 06/24/2018 SURGEON: Alban Alvarado MD DIRECTOR RECREATION: MARIBETH Dorsey, whos assistance was necessary for positioning, retraction, help with instrumentation, and closure. ANESTHESIOLOGIST: Dr. Bronson PREOPERATIVE DIAGNOSIS: Dislocated right peroneal tendons POSTOPERATIVE DIAGNOSIS: Dislocated right peroneal tendons, peroneus brevis tendon rupture, peroneal tenosynovitis. OPERATION: 1. Right peroneal tendon exploration with synovectomy of peroneal tendon sheath. 2. Removal of deep hardware, right ankle 3. Transfer of peroneus brevis to peroneus longus with tenodesis 4. Repair of right ankle dislocated peroneal tendons ANESTHESIA: General IMPLANTS: none TOURNIQUET TIME: Less than 2 hours with a well-padded calf tourniquet at 225 mmHg. SPECIMENS: none ESTIMATED BLOOD LOSS: minimal COMPLICATIONS: none STATUS: Stable from the operating room to the recovery room and then home. INDICATIONS FOR PROCEDURE: Ede has had multiple prior right ankle surgeries, most recently about 6 months ago. She was noncompliant post-op but was doing well until a few weeks ago when she injured the right ankle and has had increased pain and swelling since. Her exam was consistent with a peroneal tendon dislocation. Both operative and non operative treatment alternatives were reviewed. Further, the nature and risks of surgery were reviewed in careful detail, in the office as well as the pre- operative holding area. Our discussions regarding the risks of surgery included , but were not limited to, infection, wound problems, nerve injury, neuroma, RSD , persistent symptoms, recurrent dislocation, weakness, blood clot, failure of the surgery, recurrent instability and even the remote chance of catastrophic complication, including loss of limb. DESCRIPTION OF PROCEDURE: The patient was seen in the preoperative holding unit and informed written consent was obtained. The appropriate extremity was marked. The patient was then brought to the operating room and carefully positioned on the operating room table. Anesthesia was induced. All bony prominences were padded with great care. A chlorhexidine based pre-scrub was performed followed by a chloraprep prep and drape in standard sterile fashion. A surgical safety pause was then conducted in which we confirmed the appropriate patient, extremity, planned procedure, availability of equipment, indication and administration of prophylactic antibiotics, and DVT prophylaxis in the form of a compression boot on the non-surgical extremity. I began with placement of a sterile calf tourniquet 3 finger-breadths distal to the fibular neck. An Esmarch exsanguination of the limb was then performed and the tourniquet inflated. I utilized her prior incision overlying the distal fibula. I carried the dissection down through the soft tissue to the level of the periosteum, distal fibular plate, and superior peroneal retinaculum (SPR). At this point, it was clear that her peroneal tendons were grossly dislocated. I incised the superior peroneal retinaculum to expose the dislocated tendons. The peroneus brevis was ruptured at the level of the distal retro-fibular groove. The peroneus longus did not have a ar tears, but was significantly frayed at the level of the distal fibula. There was a large amount of inflamed tenosynovium within the tendon sheath. An extensive synovectomy was performed. I then debrided away the frayed tissue along the peroneus longus tendon. I then dissected proximally and distally to further expose the peroneus brevis tendon until I got to good, healthy-appearing tendon tissue. I removed the significantly degenerative tendon on either stump. This left us with a 2-3 cm gap of the peroneus brevis tendon. Therefore, I decided to move forward with a peroneal tendon transfer of the stumps of the brevis to the longus, both proximally and distally, thus performing a tenodesis procedure. She had already had a couple of prior distal fibular groove deepening osteotomies, and there did appear to be a sufficient groove, so I decided not to perform another groove deepening osteotomy. I then used an Arthrex hexhead screwdriver to remove the 5 screws from the distal fibula plate. The plate was then elevated off the bone and removed. At this point I reduced the dislocated peroneal tendons and carefully planned out the repair of the superior peroneal retinaculum. The wound was copiously irrigated. I repaired the SPR utilizing #1 Vicryl suture in a transosseous horizontal mattress suture pattern. I utilized multiple sutures for this repair , appropriately tensioning the SPR. I was able to pass a [place] under the repaired SPR without difficulty after the repair. We then irrigated the wound copiously again. The wound was closed in a layered fashion utilizing 3-0 Monocryl and 3-0 nylon. A sterile dressing was then applied and the ankle was splinted in a neutral position. All needle and sponge counts were correct at the end of the case. The patient was awakened from anesthesia and transferred to the recovery room in stable condition. There were no complications. ATTESTATION: I attest I was present and scrubbed and performed the critical portions of the procedure myself. POST-OPERATIVE PLAN: The patient will remain [id number] for an anticipated duration of 6 weeks. Follow up will be in 2 weeks for likely suture removal and transition into a short leg cast.
[2018-06-24] MEDS ORDERED: Bupivacaine 0.25% SDV PF* 10 ML VIAL INJ ONE (12:10)
[2018-06-24] MEDS ORDERED: oxyCODONE/Acetamin 5/325 MG* TAB ONE (12:44)
[2018-06-24 14:51] VITALS: BP 108/75
[2018-06-27] MEDS ORDERED: Scopolamine PATCH Remove* 1 NOTE MISC PATCH OFF ONE (06:00)
== END 2018-06-24 15:02 | disposition home or self-care (01) ==
LOC: OR 07:59
PROVIDERS: ATTEND Orthopaedic Surgery
DX: M25.371 Other instability, right ankle (principal); M76.71 Peroneal tendinitis, right leg; M06.9 Rheumatoid arthritis, unspecified; G89.29 Other chronic pain; Z87.828 Personal history of other (healed) physical injury and trauma
CPT/HCPCS: 88300; A9270-GY; C1776; J0690; J0780; J1885; J2250; J2270; J2704; J3010; J3490; J8540